=== PATIENT | male | born 2000 | race Hispanic/Latino ===

== ENCOUNTER 2021-12-28 22:41 | Observation (INO) | payer SELFPAY ==
[2021-12-29] MEDS ORDERED: Morphine 4 MG/ML VIAL ONE (01:21)
[2021-12-29] MEDS ORDERED: Ondansetron PF 4 MG/2 ML Vial ONE ×2 (01:21→10:59)
[2021-12-29 01:25] LABS: Hemoglobin 14.7 g/dL (13.5-17.5); Mean Corpuscular HGB CONC 35.3 g/dL (32.0-36.0); Mean Corpuscular Hemoglobin 30.7 pg (27.0-33.0); Mean Corpuscular Volume 86.8 fl (81.2-95.1); Mean Platelet Volume 9.1 fl (7.4-10.4); Platelet Count 296 10x3/uL (150-450); RBC Distribution Width 12.4 % (11.5-14.5); Red Blood Cell (RBC) Count 4.79 10x6/uL (4.32-5.72); White Blood Cell (WBC) Count 12.5 10x3/uL (3.5-10.5)
[2021-12-29 01:35] LABS: ALT (SGPT) 22 U/L (8-55); AST (SGOT) 21 U/L (5-34); Albumin 4.5 g/dL (3.5-5.0); Alkaline Phosphatase 92 U/L (40-110); Anion Gap 14 mmol/L (10-20); BUN (Urea Nitrogen) 7 mg/dL (8.9-20.6); Bilirubin, Total 1.7 mg/dL (0.2-1.2); Calc. Creatinine Clearance 0 mL/min (70-130); Calcium 9.4 mg/dL (7.8-10.44); Carbon Dioxide 24 mmol/L (22-29); Chloride 99 mmol/L (98-107); Estimated GFR 131; Globulin 3.1 g/dL (2.4-3.5); Glucose 134 mg/dL (70-105); Lipase 7 U/L (8-78); Potassium 3.4 mmol/L (3.5-5.1); Protein, Total 7.6 g/dL (6.0-8.3); Sodium 134 mmol/L (136-145)
[2021-12-29 01:52] LABS: MDiff Complete? YES
[2021-12-29 01:55] LABS: Band 18 % (5-11); Lymphocytes 3 % (21-51); Monocytes 5 % (0-10); Neutrophil 73 % (42-75); Platelet Morphology Comment Appears Adequate; RBC Morphology Normal; Reactive Lymphocytes 1 % (0-10)
[2021-12-29 02:33] LABS: Bilirubin Neg (Negative); Blood, Urine Negative (Negative); Clarity Clear (Clear); Glucose, Urine (Dipstick) Normal (Negative); Ketone, Urine 15 mg/dL (Negative); Leukocyte Negative (Negative); Nitrite Negative (Negative); Protein, Urine (Dipstick) Negative (Neg-Trace); Urobilinogen Normal mg/dL (Less than 2)
[2021-12-29] MEDS ORDERED: Piperacillin/Tazobactam 4.5 GM VIAL ONE (03:07)
[2021-12-29 04:16] LABS: SARS-CoV-2 NAA Rapid Test Not Detected (NotDetected)
[2021-12-29 04:20] VITALS: BMI 22.4
[2021-12-29] MEDS ORDERED: Morphine 4 MG/ML VIAL SLOW IVP PRN (04:28)
[2021-12-29] MEDS ORDERED: Sodium Chloride 0.9% 1,000 ML IV SCH (04:30)
[2021-12-29] MEDS ORDERED: Ondansetron PF 4 MG/2 ML Vial IVP PRN ×2 (04:30→08:42)
[2021-12-29] MEDS ORDERED: Ondansetron ODT 4 MG TAB SL PRN (04:30)
[2021-12-29] MEDS ORDERED: Dextrose 50% Abboject 50 ML SYRINGE SLOW IVP PRN (08:42)
[2021-12-29] MEDS ORDERED: Dextrose 5% in Water 1,000 ML IV PRN (08:42)
[2021-12-29] MEDS ORDERED: Promethazine HCl 25 MG/ML VIAL IM PRN (08:42)
[2021-12-29] MEDS ORDERED: HYDROcodone/Acetaminophen 10/325 mg Tablet PO PRN (08:42)
[2021-12-29] MEDS ORDERED: hydrALAZINE 20 MG/ML VIAL SLOW IVP PRN (08:42)
[2021-12-29] MEDS ORDERED: EPINEPHrine 1 MG/ML AMP ONE (09:42)
[2021-12-29] MEDS ORDERED: Bupivacaine 0.25% HCL 30 ML VIAL ONE (09:42)
[2021-12-29] MEDS: D5 1/2 NS w/20 mEq KCL 1,000 ML IV SCH ×2 (09:59→20:55)
[2021-12-29] MEDS ORDERED: Succinylcholine 200 MG/10 ml SYRINGE FS ONE (10:59)
[2021-12-29] MEDS ORDERED: Lidocaine 2% PF 5 ML VIAL ONE (10:59)
[2021-12-29] MEDS ORDERED: Dexamethasone 4 mg/ml Vial ONE (10:59)
[2021-12-29] MEDS ORDERED: Fentanyl 100 MCG/2 ML VIAL ONE (10:59)
[2021-12-29] MEDS ORDERED: Rocuronium Bromide 10 MG/ML (10ML VIAL) ONE (10:59)
[2021-12-29] MEDS ORDERED: PROPOFOL 20 ML ONE (10:59)
[2021-12-29] MEDS ORDERED: Ketorolac Tromethamine 30 MG/ML VIAL ONE (10:59)
[2021-12-29] MEDS ORDERED: Glycopyrrolate 0.2 MG/ML 5 ML SYRINGE ONE (10:59)
[2021-12-29] MEDS ORDERED: Piperacillin/Tazobactam 3.375 GM in Sodium Chloride 0.9% 100 ML IVPB SCH (11:00)
[2021-12-29] MEDS: Ketorolac Tromethamine 30 MG/ML VIAL IVP SCH ×3 (13:31→20:55)
[2021-12-29] MEDS ORDERED: Iopamidol 370 76% 100 ML VIAL ONE (14:42)
[2021-12-30] MEDS: D5 1/2 NS w/20 mEq KCL 1,000 ML IV SCH ×3 (03:24→15:06)
[2021-12-30] MEDS: Ketorolac Tromethamine 30 MG/ML VIAL IVP SCH ×3 (03:32→18:34)
[2021-12-30 05:02] LABS: Anion Gap 10 mmol/L (10-20); BUN (Urea Nitrogen) 6 mg/dL (8.9-20.6); Calc. Creatinine Clearance 120 mL/min (70-130); Calcium 8.7 mg/dL (7.8-10.44); Carbon Dioxide 23 mmol/L (22-29); Chloride 106 mmol/L (98-107); Estimated GFR 133; Glucose 135 mg/dL (70-105); Potassium 3.8 mmol/L (3.5-5.1); Sodium 135 mmol/L (136-145)
[2021-12-30] MEDS ORDERED: D5 1/2 NS w/20 mEq KCL 1,000 ML ONE (06:35)
[2021-12-30 07:08] LABS: Hemoglobin 11.8 g/dL (13.5-17.5); Mean Corpuscular HGB CONC 33.5 g/dL (32.0-36.0); Mean Corpuscular Hemoglobin 30.5 pg (27.0-33.0); Mean Platelet Volume 9.3 fl (7.4-10.4); Platelet Count 206 10x3/uL (150-450); RBC Distribution Width 12.8 % (11.5-14.5); Red Blood Cell (RBC) Count 3.87 10x6/uL (4.32-5.72); White Blood Cell (WBC) Count 11.4 10x3/uL (3.5-10.5)
[2021-12-30 07:15] LABS: MDiff Complete? YES
[2021-12-30 07:35] LABS: Lymphocytes 11 % (21-51)
[2021-12-30 07:36] LABS: Band 2 % (5-11); Monocytes 4 % (0-10); Neutrophil 83 % (42-75); Platelet Morphology Comment Appears Adequate
[2021-12-30 07:37] LABS: RBC Morphology Normal
[2021-12-30] MEDS: Enoxaparin Sodium 40 MG/0.4 ML SYRINGE SC SCH (10:05)
[2021-12-31] MEDS: Ketorolac Tromethamine 30 MG/ML VIAL IVP SCH ×3 (00:11→10:16)
[2021-12-31] MEDS: D5 1/2 NS w/20 mEq KCL 1,000 ML IV SCH ×2 (00:15→08:17)
[2021-12-31] MEDS: Enoxaparin Sodium 40 MG/0.4 ML SYRINGE SC SCH (08:16)
[2021-12-31] MEDS ORDERED: D5 1/2 NS w/20 mEq KCL 1,000 ML ONE (08:32)
[2021-12-31 12:04] VITALS: TEMP 98.1
[2021-12-31 16:15] VITALS: BP 115/60
== END 2021-12-31 14:30 | disposition home or self-care (01) ==
LOC: CSHERS 22:41 → CSHTELE 12-29 04:06
PROVIDERS: ADMIT Surgery; ATTEND Surgery
PROC: 0DTJ4ZZ Resection of Appendix, Percutaneous Endoscopic Approach (ICD-10-PCS; principal; 2021-12-29)
DX: K35.33 Acute appendicitis with perforation, localized peritonitis, and gangrene, with abscess (principal); F17.200 Nicotine dependence, unspecified, uncomplicated; Z20.822 Contact with and (suspected) exposure to COVID-19
CPT/HCPCS: 36415; 74177; 80048; 80053; 81003; 83690; 85025; 88304; 96361; 96365; 96366; 96372; 96374; 96375; 96376; A4649; G0378; J0171; J1100; J1650; J1885; J2001; J2270; J2405; J2543; J2704; J3010; J3480; J3490; J7050; Q9967; S0020; U0002

== ENCOUNTER 2022-01-03 03:40 | Inpatient (IN) | payer SELFPAY ==
[2022-01-03] MEDS ORDERED: Morphine 4 MG/ML VIAL ONE (04:09)
[2022-01-03] MEDS ORDERED: Ondansetron PF 4 MG/2 ML Vial ONE (04:09)
[2022-01-03] MEDS ORDERED: Ketorolac Tromethamine 30 MG/ML VIAL ONE (04:10)
[2022-01-03] MEDS ORDERED: Piperacillin/Tazobactam 4.5 GM VIAL ONE (04:10)
[2022-01-03 04:23] LABS: #Eosinphils 0.1 10x3/uL (0.0-0.5); #Monocytes 1.1 10x3/uL (0.0-1.1); #Neutrophils 7.9 10x3/uL (1.5-8.4); %Basophils 0.4 % (0.0-2.0); %Eosinophils 0.7 % (0.0-6.0); %Lymphocytes 14.1 % (18.0-47.0); %Monocytes 10.6 % (0.0-10.0); %Neutrophils 73.8 % (40.0-75.0); Hemoglobin 12.3 g/dL (13.5-17.5); Mean Corpuscular HGB CONC 34.4 g/dL (32.0-36.0); Mean Corpuscular Hemoglobin 30.5 pg (27.0-33.0); Mean Corpuscular Volume 88.8 fl (81.2-95.1); Mean Platelet Volume 9.2 fl (7.4-10.4); Platelet Count 289 10x3/uL (150-450); RBC Distribution Width 12.2 % (11.5-14.5); Red Blood Cell (RBC) Count 4.03 10x6/uL (4.32-5.72); White Blood Cell (WBC) Count 10.7 10x3/uL (3.5-10.5)
[2022-01-03 04:41] LABS: ALT (SGPT) 33 U/L (8-55); AST (SGOT) 31 U/L (5-34); Albumin 3.9 g/dL (3.5-5.0); Alkaline Phosphatase 82 U/L (40-110); Anion Gap 18 mmol/L (10-20); BUN (Urea Nitrogen) 9 mg/dL (8.9-20.6); Bilirubin, Total 1.8 mg/dL (0.2-1.2); Calc. Creatinine Clearance 0 mL/min (70-130); Calcium 9.1 mg/dL (7.8-10.44); Carbon Dioxide 22 mmol/L (22-29); Chloride 99 mmol/L (98-107); Estimated GFR 130; Globulin 3.5 g/dL (2.4-3.5); Glucose 122 mg/dL (70-105); Lipase 11 U/L (8-78); Potassium 4.1 mmol/L (3.5-5.1); Protein, Total 7.4 g/dL (6.0-8.3); Sodium 135 mmol/L (136-145)
[2022-01-03 07:12] LABS: Bilirubin 1+ (Negative); Blood, Urine Negative (Negative); Clarity Clear (Clear); Glucose, Urine (Dipstick) Normal (Negative); Ketone, Urine 15 mg/dL (Negative); Leukocyte Negative (Negative); Nitrite Negative (Negative); Protein, Urine (Dipstick) Negative (Neg-Trace)
[2022-01-03] MEDS ORDERED: diphenhydrAMINE 50 MG/ML VIAL ONE (07:28)
[2022-01-03 08:26] LABS: SARS-CoV-2 NAA Rapid Test Not Detected (NotDetected)
[2022-01-03 09:06] VITALS: BMI 19.2
[2022-01-03] MEDS ORDERED: Morphine 2 MG/ML VIAL SLOW IVP PRN (09:54)
[2022-01-03] MEDS ORDERED: Promethazine HCl 25 MG/ML VIAL IM PRN (09:54)
[2022-01-03] MEDS ORDERED: Dextrose 50% Abboject 50 ML SYRINGE SLOW IVP PRN (09:54)
[2022-01-03] MEDS ORDERED: hydrALAZINE 20 MG/ML VIAL SLOW IVP PRN (09:54)
[2022-01-03] MEDS ORDERED: Dextrose 5% in Water 1,000 ML IV PRN (09:54)
[2022-01-03] MEDS ORDERED: Famotidine/PF 20 mg/2ml Vial SLOW IVP PRN (10:31)
[2022-01-03] MEDS ORDERED: Prevnar 13-Val Conj/PF 0.5 ML SYRINGE IM ONE (10:45)
[2022-01-03] MEDS ORDERED: Iopamidol 300 61% 100 ML VIAL FS ONE (10:57)
[2022-01-03] MEDS ORDERED: Piperacillin/Tazobactam 3.375 GM in Sodium Chloride 0.9% 100 ML IVPB SCH (11:00)
[2022-01-03] MEDS: D5 1/2 NS w/20 mEq KCL 1,000 ML IV SCH ×2 (11:09→20:50)
[2022-01-03] MEDS: HYDROcodone/Acetaminophen 10/325 mg Tablet PO PRN ×4 (11:13→20:47)
[2022-01-03] MEDS: Piperacillin/Tazobactam 3.375 GM in Sodium Chloride 0.9% 100 ML IVPB SCH ×2 (13:35→23:20)
[2022-01-03] MEDS: Famotidine 20 MG TAB PO SCH (20:47)
[2022-01-03] MEDS ORDERED: Famotidine/PF 20 mg/2ml Vial SLOW IVP SCH (21:00)
[2022-01-04] MEDS: HYDROcodone/Acetaminophen 10/325 mg Tablet PO PRN ×3 (00:49→20:28)
[2022-01-04] MEDS: D5 1/2 NS w/20 mEq KCL 1,000 ML IV SCH ×3 (05:23→22:05)
[2022-01-04] MEDS: Piperacillin/Tazobactam 3.375 GM in Sodium Chloride 0.9% 100 ML IVPB SCH ×3 (05:31→22:02)
[2022-01-04 05:46] LABS: #Eosinphils 0.2 10x3/uL (0.0-0.5); #Neutrophils 7.1 10x3/uL (1.5-8.4); %Basophils 0.3 % (0.0-2.0); %Eosinophils 2.2 % (0.0-6.0); %Monocytes 9.6 % (0.0-10.0); %Neutrophils 69.3 % (40.0-75.0); Hemoglobin 10.2 g/dL (13.5-17.5); Mean Corpuscular HGB CONC 34.5 g/dL (32.0-36.0); Mean Corpuscular Hemoglobin 30.4 pg (27.0-33.0); Mean Corpuscular Volume 88.4 fl (81.2-95.1); Mean Platelet Volume 9.2 fl (7.4-10.4); Platelet Count 271 10x3/uL (150-450); RBC Distribution Width 12.6 % (11.5-14.5); Red Blood Cell (RBC) Count 3.35 10x6/uL (4.32-5.72); White Blood Cell (WBC) Count 10.3 10x3/uL (3.5-10.5)
[2022-01-04 06:06] LABS: Anion Gap 14 mmol/L (10-20); BUN (Urea Nitrogen) 8 mg/dL (8.9-20.6); Calc. Creatinine Clearance 104 mL/min (70-130); Calcium 8.3 mg/dL (7.8-10.44); Carbon Dioxide 23 mmol/L (22-29); Chloride 100 mmol/L (98-107); Estimated GFR 127; Glucose 109 mg/dL (70-105); Potassium 3.7 mmol/L (3.5-5.1); Sodium 133 mmol/L (136-145)
[2022-01-04] MEDS: Famotidine 20 MG TAB PO SCH ×2 (08:30→20:27)
[2022-01-04] MEDS ORDERED: Enoxaparin Sodium 40 MG/0.4 ML SYRINGE SC SCH (09:00)
[2022-01-05 05:17] LABS: #Eosinphils 0.3 10x3/uL (0.0-0.5); #Monocytes 0.7 10x3/uL (0.0-1.1); #Neutrophils 7.6 10x3/uL (1.5-8.4); %Basophils 0.3 % (0.0-2.0); %Eosinophils 2.6 % (0.0-6.0); %Monocytes 6.6 % (0.0-10.0); %Neutrophils 74.9 % (40.0-75.0); Hemoglobin 9.9 g/dL (13.5-17.5); Mean Corpuscular HGB CONC 33.7 g/dL (32.0-36.0); Mean Corpuscular Hemoglobin 30.3 pg (27.0-33.0); Mean Corpuscular Volume 89.9 fl (81.2-95.1); Platelet Count 329 10x3/uL (150-450); RBC Distribution Width 12.6 % (11.5-14.5); Red Blood Cell (RBC) Count 3.27 10x6/uL (4.32-5.72); White Blood Cell (WBC) Count 10.2 10x3/uL (3.5-10.5)
[2022-01-05] MEDS: Piperacillin/Tazobactam 3.375 GM in Sodium Chloride 0.9% 100 ML IVPB SCH ×3 (06:16→23:00)
[2022-01-05] MEDS: HYDROcodone/Acetaminophen 10/325 mg Tablet PO PRN ×2 (06:32→23:18)
[2022-01-05] MEDS: D5 1/2 NS w/20 mEq KCL 1,000 ML IV SCH ×2 (08:38→18:40)
[2022-01-05] MEDS: Polyethylene Glycol 3350 17 GM Packet PO SCH (08:38)
[2022-01-05] MEDS: Famotidine 20 MG TAB PO SCH ×2 (08:38→20:14)
[2022-01-06] MEDS: D5 1/2 NS w/20 mEq KCL 1,000 ML IV SCH ×2 (04:29→11:56)
[2022-01-06] MEDS: Piperacillin/Tazobactam 3.375 GM in Sodium Chloride 0.9% 100 ML IVPB SCH ×2 (07:00→14:47)
[2022-01-06] MEDS: Famotidine 20 MG TAB PO SCH ×2 (08:31→22:02)
[2022-01-06] MEDS: Polyethylene Glycol 3350 17 GM Packet PO SCH (08:31)
[2022-01-06] MEDS: HYDROcodone/Acetaminophen 10/325 mg Tablet PO PRN ×2 (08:34→17:38)
[2022-01-07] MEDS: Ondansetron PF 4 MG/2 ML Vial IVP PRN ×2 (02:04→08:28)
[2022-01-07] MEDS: HYDROcodone/Acetaminophen 10/325 mg Tablet PO PRN ×2 (02:05→11:58)
[2022-01-07] MEDS: Polyethylene Glycol 3350 17 GM Packet PO SCH (08:25)
[2022-01-07] MEDS: Famotidine 20 MG TAB PO SCH (08:25)
[2022-01-07 18:08] VITALS: BP 102/50; TEMP 98
== END 2022-01-07 18:23 | disposition home or self-care (01) | DRG 862 ==
LOC: CSHERS 03:40 → CSHTELE 08:55 → OBSVTOIN 09:54
PROVIDERS: ADMIT Surgery; ATTEND Surgery
DX: T81.43XA Infection following a procedure, organ and space surgical site, initial encounter (principal); K65.1 Peritoneal abscess; F17.210 Nicotine dependence, cigarettes, uncomplicated; Z20.822 Contact with and (suspected) exposure to COVID-19; B96.20 Unspecified Escherichia coli [E. coli] as the cause of diseases classified elsewhere; Z90.89 Acquired absence of other organs
CPT/HCPCS: 36415; 71045; 74177; 80048; 80053; 81003; 83605; 83690; 85025; 87040; 87077; 87086; 87149; 87186; 94760; 96365; 96366; 96367; 96375; J1200; J1650; J1885; J2270; J2405; J2543; J3370; J3480; J3490; Q9967; U0002